=== PATIENT | male | born 1960 | race Two or more races ===

== ENCOUNTER 2017-11-19 22:52 | Emergency (ER) | payer OTHER ==
[~2017-11-19] VITALS: Ht 172.7 cm; Wt 95.3 kg
[2017-11-19 23:01] VITALS: BP 136/83
[2017-11-19 23:29] LABS: Basophils # (auto) 0.1 uL; Basophils % (auto) 0.8 % (0.0-2.0); Eosinophils # (auto) 0 uL; Hematocrit 38.5 % (41.0-53.0); Lymphocytes # (auto) 1.2 uL; Lymphocytes % (auto) 13.2 % (10.0-50.0); Mean Corpuscular Hemoglobin 29.5 pg (28.0-32.0); Mean Corpuscular Hgb Conc. 33.7 g/dL (32.0-36.0); Mean Corpuscular Volume 87.4 fL (80.0-100.0); Monocytes # (auto) 0.9 uL; Monocytes % (auto) 10.1 % (0.0-12.0); Neutrophils % (auto) 75.9 % (37.0-80.0); Platelet Count (auto) 134 10^3/uL (140-450); Red Cell Distribution Width 12.7 % (11.8-14.3); White Blood Cell 9.2 10^3/uL (4.4-10.8)
[2017-11-19 23:47] LABS: BUN/Creatinine Ratio 9.6; Bilirubin, Total 0.5 mg/dL (0.2-1.0); Calcium 7.9 mg/dL (8.5-10.1); Potassium 3.2 mmol/L (3.5-5.1); Total Protein 7.9 g/dL (6.4-8.2)
== END 2017-11-20 00:29 | disposition left against medical advice (07) ==
LOC: ER 22:57
DX: R07.89 Other chest pain (principal); Z53.21 Procedure and treatment not carried out due to patient leaving prior to being seen by health care provider
CPT/HCPCS: 36415; 71045; 80053; 84484; 85025; 93005